=== PATIENT | female | born 1965 | race American Indian/Alaskan Native ===

== ENCOUNTER 2019-10-09 15:21 | Emergency (ER) | payer BC ==
--- NOTE | 2019-10-09 15:53 | Event Note ---
ED Screening Note ED Screening Note: 54 yo female desires pain control for pinched nerve in left arm. Evaluated by orthopedic surgeon. Recently has had 2 days of constant chest pain. This initial assessment/diagnostic orders/clinical plan/treatment(s) is/are subject to change based on patients health status, clinical progression and re-assessment by fellow clinical providers in the ED. Further treatment and workup at subsequent clinical providers discretion. Patient/guardian urged not to elope from the ED as their condition may be serious if not clinically assessed and managed. Initial orders include: labs EKG cxr
--- NOTE | 2019-10-09 16:33 | XRay Report ---
CHEST 2 VIEWS INDICATION / CLINICAL INFORMATION: Chest Pain. COMPARISON: None available. FINDINGS: SUPPORT DEVICES: None. HEART / MEDIASTINUM: No significant abnormality. LUNGS / PLEURA: No significant pulmonary or pleural abnormality. No pneumothorax. ADDITIONAL FINDINGS: No significant additional findings. IMPRESSION: 1. No acute findings. Signer Name: Alec Pearce MD Signed: 10/09/2019 4:29 PM Workstation Name: [id number]
[2019-10-09 16:54] LABS: Basophils % (Auto) 0.7 % (0.0-1.8); Eosinophils # (Auto) 0.2 K/mm3 (0.0-0.4); Eosinophils % (Auto) 2.9 % (0.0-4.3); Hematocrit 39.5 % (30.3-42.9); Hemoglobin 13.2 gm/dl (10.1-14.3); Lymphocytes # (Auto) 2.1 K/mm3 (1.2-5.4); Lymphocytes % (Auto) 35.1 % (13.4-35.0); Mean Corpuscular HGB Conc 34 % (30-34); Mean Corpuscular Volume 92 fl (79-97); Monocytes # (Auto) 0.4 K/mm3 (0.0-0.8); Monocytes % (Auto) 6.5 % (0.0-7.3); Platelet Count 328 K/mm3 (140-440); Red Blood Count 4.29 M/mm3 (3.65-5.03); Red Cell Distribution Width 13.8 % (13.2-15.2)
[2019-10-09 17:15] LABS: BUN/Creatinine Ratio 17; Blood Urea Nitrogen 15 mg/dL (7-17); Calcium 9.3 mg/dL (8.4-10.2); Hemolysis Index 8
--- NOTE | 2019-10-09 17:20 | Emergency Department Report ---
ED Chest Pain HPI - General Chief Complaint: Chest Pain Stated Complaint: LFT SIDE NUMB/CHEST PAIN Time Seen by Provider: 10/09/19 16:08 Source: patient Mode of arrival: Ambulatory Limitations: No Limitations - History of Present Illness Initial Comments: 54-year-old -[place] female with history of asthma presents with complaints of left-sided chest pain x 2 days and left arm pain and numbness x5 weeks. Patient reports she is currently being evaluated by an replenishment specialist, Dr. Barrett, for her left arm pain and numbness. She states she had an MRI performed on 09/25/2019 and was found to have a pinched nerve. She states that she is currently taking prednisone and meloxicam which are not helping with her nerve pain. Patient denies any previous cardiac history, IL/CVA/DVT/PE, recent long travel, hormones, hemoptysis, or recent surgeries. She does report bilateral leg pain for the past 2 to 3 days that is now radiating into her right thigh. She also states she has been having intermittent shortness of breath at rest and with exertion. She rates her current chest pain as a 7/10 in severity and describes it as a sharp constant pain. She denies worsening of her chest pain with exertion. She reports history of CHF in her mother and heart disease in her father. MD Complaint: chest pain -: Sudden Onset: during rest Pain Location: left chest Pain Radiation: none Severity scale (0 -10): 7 Quality: sharp Consistency: constant Improves With: nothing Worsens With: nothing Other Symptoms: denies: cough, fever, syncope - Related Data Home Medications Medication Instructions Recorded Confirmed Last Taken Albuterol INH(or & Nicu Only) 2 puff IH QID PRN 09/30/13 09/30/13 08/27/13 [ProAir HFA Inhaler] Albuterol Sulfate [Albuterol 0.63% 0.63 mg IH TID PRN 09/30/13 09/30/13 09/07/13 NEBS] Fluticasone/Salmeterol [Advair 2 puff INHALATION BID 09/30/13 09/30/13 09/14/13 Diskus 250-50 mcg] Previous Rx's Medication Instructions Recorded Last Taken Type Diclofenac Sodium 50 mg PO TID PRN #21 tablet. 10/09/19 Unknown Rx Gabapentin 300 mg PO BID #30 cap 10/09/19 Unknown Rx methOCARBAMOL [Robaxin TAB] 1,500 mg PO TID PRN #30 tablet 10/09/19 Unknown Rx Allergies Allergy/AdvReac Type Severity Reaction Status Date / Time iodine Allergy Anaphylaxis Verified 09/30/13 10:44 latex AdvReac Itching Verified 09/30/13 10:44 Heart Score - HEART Score History: Moderately suspicious EKG: Normal Age: 45-65 Risk factors: 1-2 risk factors Troponin: < normal limit HEART Score: 3 - Critical Actions Critical Actions: 0-3 pts:0.9-1.7%risk of adverse cardiac event.Candidate for discharge ED Review of Systems ROS: Stated complaint: LFT SIDE NUMB/CHEST PAIN Other details as noted in HPI Constitutional: denies: chills, fever Eyes: denies: vision change Respiratory: orthopnea, SOB with exertion, SOB at rest. denies: cough Cardiovascular: chest pain. denies: palpitations, edema, syncope Gastrointestinal: denies: abdominal pain, nausea, vomiting Musculoskeletal: myalgia. denies: joint swelling, arthralgia Neurological: numbness, paresthesias. denies: headache, weakness, abnormal gait, vertigo Psychiatric: anxiety Hematological/Lymphatic: denies: easy bleeding, easy bruising ED Past Medical Hx - Past Medical History Hx Hypertension: No Hx Congestive Heart Failure: No Hx Diabetes: No Hx Arthritis: Yes Hx Asthma: Yes Hx COPD: No - Surgical History Additional Surgical History: tubal ligation x 2 - Social History Smoking Status: Never Smoker Substance Use Type: None - Medications Home Medications: Home Medications Medication Instructions Recorded Confirmed Last Taken Type Albuterol INH(or & Nicu Only) 2 puff IH QID PRN 09/30/13 09/30/13 08/27/13 History [ProAir HFA Inhaler] Albuterol Sulfate [Albuterol 0.63% 0.63 mg IH TID PRN 09/30/13 09/30/13 09/07/13 History NEBS] Fluticasone/Salmeterol [Advair 2 puff INHALATION BID 09/30/13 09/30/13 09/14/13 History Diskus 250-50 mcg] Diclofenac Sodium 50 mg PO TID PRN #21 tablet. 10/09/19 Unknown Rx Gabapentin 300 mg PO BID #30 cap 10/09/19 Unknown Rx methOCARBAMOL [Robaxin TAB] 1,500 mg PO TID PRN #30 tablet 10/09/19 Unknown Rx ED Physical Exam - General Limitations: No Limitations General appearance: alert, in no apparent distress - Head Head exam: Present: atraumatic, normocephalic - Eye Eye exam: Present: normal appearance, PERRL. Absent: scleral icterus - Neck Neck exam: Present: normal inspection, full ROM. Absent: tenderness - Respiratory Respiratory exam: Present: normal lung sounds bilaterally. Absent: respiratory distress - Cardiovascular Cardiovascular Exam: Present: regular rate, normal rhythm. Absent: systolic murmur, diastolic murmur, rubs, gallop - GI/Abdominal GI/Abdominal exam: Present: soft, normal bowel sounds. Absent: distended, tenderness, guarding, rebound, rigid - Extremities Exam Extremities exam: Present: normal inspection, calf tenderness (bilateral) - Back Exam Back exam: Present: normal inspection - Neurological Exam Neurological exam: Present: alert, oriented X3 - Psychiatric Psychiatric exam: Present: normal affect, normal mood - Skin Skin exam: Present: warm, dry, intact, normal color. Absent: rash ED Course Vital Signs 10/09/19 10/09/19 10/09/19 15:50 18:26 19:23 Temperature 97.6 F Pulse Rate 77 Respiratory 20 16 18 Rate Blood Pressure 134/78 Blood Pressure [Right] O2 Sat by Pulse 99 Oximetry 10/09/19 19:33 Temperature 97.6 F Pulse Rate 72 Respiratory 18 Rate Blood Pressure Blood Pressure 138/80 [Right] O2 Sat by Pulse 98 Oximetry LUCINA score - Lucina Score Age > 65: (0) No Aspirin use within the Past 7 Days: (0) No 3 or more CAD Risk Factors: (0) No 2 or more Angina events in past 24 hrs: (0) No Known CAD with more than 50% Stenosis: (0) No Elevated Cardiac Markers: (0) No ST Deviation Greater than 0.5mm: (0) No LUCINA Score: 0 ED Medical Decision Making - Lab Data Result diagrams: 10/09/19 16:38 10/09/19 16:38 Lab Results 10/09/19 10/09/19 10/09/19 Range/Units 16:38 16:38 17:41 WBC 6.0 (4.5-11.0) K/mm3 RBC 4.29 (3.65-5.03) M/mm3 Hgb 13.2 (10.1-14.3) gm/dl Hct 39.5 (30.3-42.9) % MCV 92 (79-97) fl MCH 31 (28-32) pg MCHC 34 (30-34) % RDW 13.8 (13.2-15.2) % Plt Count 328 (140-440) K/mm3 Lymph % (Auto) 35.1 H (13.4-35.0) % Webster % (Auto) 6.5 (0.0-7.3) % Eos % (Auto) 2.9 (0.0-4.3) % Baso % (Auto) 0.7 (0.0-1.8) % Lymph # 2.1 (1.2-5.4) K/mm3 Webster # 0.4 (0.0-0.8) K/mm3 Eos # 0.2 (0.0-0.4) K/mm3 Baso # 0.0 (0.0-0.1) K/mm3 Seg Neutrophils % 54.8 (40.0-70.0) % Seg Neutrophils # 3.3 (1.8-7.7) K/mm3 D-Dimer 135.00 (0-234) ng/mlDDU Sodium 138 (137-145) mmol/L Potassium 3.9 (3.6-5.0) mmol/L Chloride 102.5 (98-107) mmol/L Carbon Dioxide 23 (22-30) mmol/L Anion Gap 16 mmol/L BUN 15 (7-17) mg/dL Creatinine 0.9 (0.7-1.2) mg/dL Estimated GFR > 60 ml/min BUN/Creatinine Ratio 17 % Glucose 95 (65-100) mg/dL Calcium 9.3 (8.4-10.2) mg/dL Total Bilirubin (0.1-1.2) mg/dL Direct Bilirubin (0-0.2) mg/dL Indirect Bilirubin mg/dL AST (5-40) units/L ALT (7-56) units/L Alkaline Phosphatase (35-129) units/L Troponin T < 0.010 (0.00-0.029) ng/mL NT-Pro-B Natriuret Pep (0-900) pg/mL Total Protein (6.3-8.2) g/dL Albumin (3.9-5) g/dL Albumin/Globulin Ratio % 10/09/19 10/09/19 10/09/19 Range/Units 17:41 17:41 20:10 WBC (4.5-11.0) K/mm3 RBC (3.65-5.03) M/mm3 Hgb (10.1-14.3) gm/dl Hct (30.3-42.9) % MCV (79-97) fl MCH (28-32) pg MCHC (30-34) % RDW (13.2-15.2) % Plt Count (140-440) K/mm3 Lymph % (Auto) (13.4-35.0) % Webster % (Auto) (0.0-7.3) % Eos % (Auto) (0.0-4.3) % Baso % (Auto) (0.0-1.8) % Lymph # (1.2-5.4) K/mm3 Webster # (0.0-0.8) K/mm3 Eos # (0.0-0.4) K/mm3 Baso # (0.0-0.1) K/mm3 Seg Neutrophils % (40.0-70.0) % Seg Neutrophils # (1.8-7.7) K/mm3 D-Dimer (0-234) ng/mlDDU Sodium (137-145) mmol/L Potassium (3.6-5.0) mmol/L Chloride (98-107) mmol/L Carbon Dioxide (22-30) mmol/L Anion Gap mmol/L BUN (7-17) mg/dL Creatinine (0.7-1.2) mg/dL Estimated GFR ml/min BUN/Creatinine Ratio % Glucose (65-100) mg/dL Calcium (8.4-10.2) mg/dL Total Bilirubin 0.30 (0.1-1.2) mg/dL Direct Bilirubin < 0.2 (0-0.2) mg/dL Indirect Bilirubin 0.1 mg/dL AST 19 (5-40) units/L ALT 21 (7-56) units/L Alkaline Phosphatase 74 (35-129) units/L Troponin T < 0.010 (0.00-0.029) ng/mL NT-Pro-B Natriuret Pep 35.83 (0-900) pg/mL Total Protein 7.3 (6.3-8.2) g/dL Albumin 4.1 (3.9-5) g/dL Albumin/Globulin Ratio 1.3 % - Radiology Data Radiology results: report reviewed CHEST 2 VIEWS INDICATION / CLINICAL INFORMATION: Chest Pain. COMPARISON: None available. FINDINGS: SUPPORT DEVICES: None. HEART / MEDIASTINUM: No significant abnormality. LUNGS / PLEURA: No significant pulmonary or pleural abnormality. No pneumothorax. ADDITIONAL FINDINGS: No significant additional findings. IMPRESSION: 1. No acute findings. - Medical Decision Making 54-year-old -[place] female with history of asthma presents with complaints of left-sided chest pain x 2 days and left arm pain and numbness x5 weeks. Patient had a recent MRI at the end of August that showed she had a pinched nerve causing her left arm numbness and pain. Patient states her PCP was to refer her to a neurologist, but has yet to do this. Initial and repeat troponins are normal. EKG is normal. Patient denies any further chest pain. Her heart score = 3. Chest x-ray is without acute findings. CBC and CMP are normal along with patient's vital signs. Patient states current pain in left arm is a 5/10 in severity after Toradol, Decadron, and Robaxin. Patient is nontoxic appearing and stable for discharge home. Recommend follow-up with cardiology and neurology within 2 days for further evaluation. Discussed very strict return precautions in detail with patient who verbalizes understanding. Critical care attestation.: If time is entered above; I have spent that time in minutes in the direct care of this critically ill patient, excluding procedure time. ED Disposition Clinical Impression: Radicular pain in left arm Chest pain Qualifiers: Chest pain type: other chest pain Qualified Code(s): R07.89 - Other chest pain; R07.8 - Other chest pain Disposition: TO HOME OR SELFCARE Is pt being admited?: No Condition: Stable Instructions: Chest Pain (ED), Cervical Radiculopathy (ED) Prescriptions: Diclofenac Sodium 50 mg PO TID PRN #21 tablet. PRN Reason: pain Gabapentin 300 mg PO BID #30 cap methOCARBAMOL [Robaxin TAB] 1,500 mg PO TID PRN #30 tablet PRN Reason: muscle spasm/tightness Referrals: FRITZ APARICIO [Staff Physician] - 2-3 Days ERNA IYER [PHYSICIAN [employer] STUDENT] - 2-3 Days
[2019-10-09] MEDS: ASPIRIN 81 MG TAB CHEW PO ONE (17:23)
[2019-10-09] MEDS: GABAPENTIN 300 MG CAP PO ONE (17:25)
[2019-10-09] MEDS: traMADol 50 MG TAB PO ONE (17:26)
[2019-10-09 18:43] LABS: Alanine Aminotransferase 21 units/L (7-56); Albumin 4.1 g/dL (3.9-5)
[2019-10-09 18:50] LABS: Bilirubin,Direct < 0.2 mg/dL (0-0.2)
[2019-10-09] MEDS: KETOROLAC 30 MG/1 ML INJ IV ONE (19:23)
[2019-10-09] MEDS: dexAMETHasone 20 MG/5 ML VIAL IV ONE (19:24)
[2019-10-09 22:17] VITALS: BP 119/73
== END 2019-10-09 21:40 | disposition home or self-care (01) ==
LOC: ED 15:21
DX: M79.602 Pain in left arm (principal); R07.89 Other chest pain; M19.90 Unspecified osteoarthritis, unspecified site; J45.909 Unspecified asthma, uncomplicated; Z79.899 Other long term (current) drug therapy; Z91.040 Latex allergy status; Z91.048 Other nonmedicinal substance allergy status
CPT/HCPCS: 36415; 71046; 80048; 80076; 83880; 84484; 85025; 85379; 93005; 93010; 96374; 96375; 99284; J1100; J1885